=== PATIENT | male | born 1980 | race Caucasian/White ===

== ENCOUNTER → 2022-03-12 | Outpatient (CLI) | payer OTHER ==
[~2022-03-12] MED LIST: IBUPROFEN600 MG PO
== END ==
LOC: RAD 15:03
DX: M25.571 Pain in right ankle and joints of right foot (principal); M54.2 Cervicalgia; M54.6 Pain in thoracic spine; M54.50 Low back pain, unspecified; R05.9 Cough, unspecified; M47.812 Spondylosis without myelopathy or radiculopathy, cervical region; M47.814 Spondylosis without myelopathy or radiculopathy, thoracic region
CPT/HCPCS: 71046; 72050; 72072; 72110; 73610